=== PATIENT | female | born 2000 | race Caucasian/White ===

== ENCOUNTER 2023-11-01 04:44 | Inpatient (IN) | payer BC ==
[2023-11-01] MEDS ORDERED: Water For Irrigation,Sterile 1,000 ML Container IRR PRN (05:05)
[2023-11-01] MEDS ORDERED: Ondansetron 4 MG/2 ML SDV IVPUSH PRN (05:05)
[2023-11-01] MEDS ORDERED: Misoprostol 200 MCG Tab PO PRN (05:05)
[2023-11-01] MEDS ORDERED: Nalbuphine 10 MG/0.5 ML Syringe IVPUSH PRN (05:05)
[2023-11-01] MEDS ORDERED: Sodium Chloride 0.9% 10 ML Syringe FLUSH PRN (05:05)
[2023-11-01] MEDS ORDERED: Tranexamic Acid IN NACL,ISO-OS 1,000 MG in Premix Bag 1 BAG IV PRN ×2 (05:05)
[2023-11-01] MEDS ORDERED: Lidocaine 1% 50 ML MDV INJECT PRN (05:05)
[2023-11-01] MEDS ORDERED: Sodium Chloride 0.9% 2.5 ML Syringe FLUSH PRN (05:05)
[2023-11-01] MEDS ORDERED: Sodium Chloride 0.9% 20 ML SDV IV PRN (05:05)
[2023-11-01] MEDS ORDERED: Terbutaline 1 MG/ML SDV SUBCUT PRN (05:05)
[2023-11-01] MEDS ORDERED: Methylergonovine 0.2 MG/1 ML Amp IM PRN (05:05)
[2023-11-01] MEDS ORDERED: Carboprost Tromethamine 250 MCG/1 mL Vial IM PRN (05:05)
[2023-11-01] MEDS ORDERED: Oxytocin/0.9 % Sodium Chloride 30 UNIT/500 ML BAG IV SCH ×2 (05:15)
[2023-11-01 05:50] LABS: HEMATOCRIT 32.6 % (37.0-47.0); HEMOGLOBIN 10.7 g/dL (12.0-16.0); MEAN CORPUSCULAR HEMOGLOBIN 24.8 pg (28.0-32.0); MEAN CORPUSCULAR HGB CONC 32.8 g/dL (32.0-36.0); MEAN CORPUSCULAR VOLUME 75.6 fL (83.0-99.0); MEAN PLATELET VOLUME 12.7 fL (9.4-12.3); PLATELET COUNT,PLT 188 K/uL (150-400); RED BLOOD CELL COUNT 4.31 M/uL (4.10-5.30); WHITE BLOOD CELL COUNT,WBC 15.49 K/uL (3.9-11.3)
[2023-11-01] MEDS: Lactated Ringers 1,000 ML IV SCH ×3 (06:30→10:23)
[2023-11-01] MEDS ORDERED: Ropivacaine HCl/PF 200 ML ONE (07:03)
[2023-11-01] MEDS ORDERED: fentaNYL 100 MCG/2 ML SDV ONE (07:03)
[2023-11-01] MEDS ORDERED: Phenylephrine HCl 0.5 MG/5 ML AMP ONE (07:03)
[2023-11-01] MEDS ORDERED: Phenylephrine HCl 0.5 MG/5 ML AMP IVPUSH PRN (07:36)
[2023-11-01] MEDS ORDERED: ePHEDrine 50 MG/ML SDV IVPUSH PRN ×2 (07:36)
[2023-11-01] MEDS ORDERED: Ropivacaine HCl/PF 400 MG in Premix Bag 1 BAG EPIDUR SCH (07:45)
[2023-11-01] MEDS ORDERED: Midazolam 1 MG/ML 2 ML SDV ONE (16:21)
[2023-11-01] MEDS ORDERED: Benzocaine/Menthol 20%-0.5% Spray 78 GM Cannister TOP PRN (17:18)
[2023-11-01] MEDS ORDERED: Lanolin 100% Cream 7 GM Tube TOP PRN (17:18)
[2023-11-01] MEDS ORDERED: Acetaminophen 500 MG Tab PO PRN (17:18)
[2023-11-01] MEDS ORDERED: Docusate Sodium 100 MG Cap PO PRN (17:18)
[2023-11-01] MEDS ORDERED: Witch Hazel Medicated Pads 40/Jar TOP PRN (17:18)
[2023-11-01] MEDS: Ibuprofen 800 MG Tab PO PRN (21:24)
[2023-11-02] MEDS: Ibuprofen 800 MG Tab PO PRN (06:24)
[2023-11-02 06:29] LABS: HEMATOCRIT 28.1 % (37.0-47.0); HEMOGLOBIN 8.9 g/dL (12.0-16.0)
== END 2023-11-02 18:37 | disposition home or self-care (01) | DRG 560 ==
LOC: MW.OBCHECK 04:44 → MW.OB 04:45 → MW.OBCHECK 05:05 → OBSVTOIN 17:18 → MW.OB 21:20
PROVIDERS: ADMIT Obstetrics & Gynecology Obstetrics; ATTEND Obstetrics & Gynecology Obstetrics
PROC: 10E0XZZ Delivery of Products of Conception, External Approach (ICD-10-PCS; principal; 2023-11-01)
PROC: 0HQ9XZZ Repair Perineum Skin, External Approach (ICD-10-PCS; 2023-11-01)
PROC: 3E0R3BZ Introduction of Anesthetic Agent into Spinal Canal, Percutaneous Approach (ICD-10-PCS; 2023-11-01)
PROC: 00HU33Z Insertion of Infusion Device into Spinal Canal, Percutaneous Approach (ICD-10-PCS; 2023-11-01)
DX: O48.0 Post-term pregnancy (principal); Z37.0 Single live birth; O70.0 First degree perineal laceration during delivery; Z3A.41 41 weeks gestation of pregnancy; Z91.018 Allergy to other foods
CPT/HCPCS: 36415; 51702; 59025; 59409; 84112; 85014; 85018; 85027; 86592; 86803; 86850; 86900; 86901; 87340; 87389; A9270-GY; J2250; J2371; J2405; J2590; J2795; J3010; J7120